=== PATIENT | male | born 1960 | race Two or more races ===

== ENCOUNTER → 2024-05-20 | Outpatient (CLI) | payer MEDICARE, MEDICAID, SELFPAY ==
--- NOTE | 2024-05-20 08:00 | XR_ITS ---
Examination: CT right lower extremity, without contrast. 2-D sagittal reconstructions. 2-D coronal reconstructions. 3-D reconstructions. Date and time of exam:May 20, 2024 0845 hours INDICATIONS: Right knee pain and osteoarthritis 3 years CTDI: vol (mGy):10.2 DLP: (mGycm):892 Technique: Multiple 1.25 mm axial sections of the right lower extremity without intravenous contrast have been obtained. 2-D sagittal and coronal reconstructions have been obtained. 3-D reconstructions have been obtained. Low dose protocols were performed. One or more of the following dose reduction techniques were used; automated exposure control, adjustment of the mA and/or KV according to patient size, use of iterative reconstruction technique. Findings: Moderate osteopenia Moderate osteoarthritis right hip joint, no hip fracture or hip dislocation No avascular necrosis Severe narrowing medial joint space right knee Advanced osteoarthritis lateral patellofemoral joints with minimal chronic lateral subluxation patella No fracture IMPRESSION: Advanced right knee tricompartment osteoarthritis with severe narrowing medial joint space
== END | disposition home or self-care (01) ==
PROVIDERS: Referring Provider Orthopaedic Surgery Adult Reconstructive Orthopaedic Surgery; Visit Provider Orthopaedic Surgery Adult Reconstructive Orthopaedic Surgery
DX: M17.11 Unilateral primary osteoarthritis, right knee (principal); M25.861 Other specified joint disorders, right knee
CPT/HCPCS: 73700

== ENCOUNTER 2024-06-03 07:46 | Outpatient (AMB) | payer MEDICARE, MEDICAID, SELFPAY ==
[2024-06-03 08:02] VITALS: BP 140/85; PULSE 76; RESP 18; TEMP 36.5; O2SAT 94; BMI 30.8
--- NOTE | 2024-06-03 08:02 | ORTHONT_ITS ---
Vital signs 06/03/24 08:02 Height 1.75 m Height Method Stated Weight 94.376 kg Weight Measurement Method Standing Scale BMI 30.8 BP 140/85 H Blood Pressure Source Automatic Cuff Blood Pressure Location Right Upper Arm Position Sitting Respiration 18 Pulse 76 Pulse Source Monitor Temp 97.7 F Temp Source Temporal Artery Scan Pulse Oximetry (%) 94 L Oxygen Delivery Method Room Air Med/Allergies Allergies & Medications Allergies No Known Allergies Allergy (Verified 06/03/24 08:02) Medication Reconciliation docusate sodium 100 mg capsule (Colace) 100 mg PO BID #40 caps 04/15/20 [Rx Con firmed 06/03/24] hydrocodone 5 mg-acetaminophen 325 mg tablet ([place]) 1 tab PO Q6H PRN pain #20 tabs 04/15/20 [Rx Confirmed 06/03/24] ibuprofen 600 mg tablet 600 mg PO Q8H PRN pain (scale score 4-6) #15 tabs 04/15/20 [Rx Confirmed 06/03/24] atorvastatin 20 mg tablet 20 mg PO QDAY 12/29/20 [History Confirmed 06/03/24] ergocalciferol (vitamin D2) 1,250 mcg (50,000 unit) capsule 1 mcg PO QDAY 12/29/20 [History Confirmed 06/03/24] ibuprofen 800 mg tablet 800 mg PO TID PRN pain #30 tabs 06/20/21 [Rx Confirmed 06/03/24] Subjective Visit Visit for: follow up visit Immunization / Flu Flu Vaccine in the Last 12 Months: No Flu Vaccine Exclusion Criteria: No Exclusion Criteria History of Present Illness Chief complaint: PRE-OPT Jone is a pleasant 63-year-old male with right knee pain has been ongoing for 3 years. He has tried naproxen, physical therapy, and 3 injections. He is also tried 2 additional injections in [place]. The pain is affecting his quality life and he notices that his knee is curving inward. He just came back from [place] reports the pain is still terrible Personal History Occupation: RETIRED Red flag PMH: other (specify) (PATIENT HAD POLIO ) and none Pain Pain level (0-10): 6 Pain duration: CONSTANT Pain location: inside (medial), outside (lateral) and anterior Pain quality: sharp, dull and aching Pain timing: increases with activity and stairs Associated signs & symptoms: stiffness Ambulatory data Ambulatory device: none Walking distance (minutes): 5 Treatments Improvement with previous injections: No Improvement with PT: No Improvement with NSAIDS: n/a Review of Systems Review of Systems: All systems negative unless otherwise noted in HPI. Exam Exam Patient is in no acute distress and is cooperative with the examination today. Breathing is nonlabored. Patient has a normal mood and affect. Bilateral extremities were evaluated and demonstrates sensation intact to light touch. Palpable pedal pulses are present. No significant edema is present. Bilateral hips were examined. The patient has no pain with log roll of the hips. Internal rotation to 30 degrees and external rotation to 30 degrees is painless. Negative FADIR. Left knee was examined today. The left knee is in reasonable alignment. Range of motion from 0-120 degrees. Knee is stable to varus and valgus as well as AP translation with <5mm. Patient has a negative McMurrays. There is no pain with patellofemoral compression and no crepitus noted. The knee is nontender to palpation. The right knee was also examined. The right knee is in varus alignment. Range of motion from 0-115 degrees. Knee is stable to varus and valgus as well as AP translation with <5mm. Patient has a negative McMurrays. There is no pain with patellofemoral compression and no crepitus noted. The knee is tender to palpation medially. Right knee x-rays demonstrate complete obliteration of the medial joint space. There is varus arthritis present and varus deformity. Assessment and Plan Problem List (1) Arthritis of knee, right: Status: Acute Plan: Patient is a 63-year-old male with right knee pain and likely right knee arthritis. He has no recent x-rays. We would like for him to get new x-rays. He has already failed conservative treatment and she tried injections anti- inflammatories, and physical therapy.She has failed conservative treatment and thus we discussed total knee replacement is a reasonable option. The right knee pain is significantly worse than the left and we will thus start on this side. We spent over 15 minutes answering his questions about surgery Plan The nature and purpose of the total knee replacement, alternative method(s) of treatment, the material risks involved, and the possibility of complications were fully explained to the patient. The patient does NOT have any of the following contraindications to TKA: - Active infection of the knee joint, OR - Active systemic bacteremia, OR - Active skin infection or open wound at surgical site, OR - Neuropathic arthritis, OR - Severe, rapidly progressive neurological disease, OR - Severe medical condition that makes risks of surgery outweigh the potential benefit The patient was told the most common risks and complications associated with a total knee replacement include, but are not limited to: blood clots in the leg, fatal pulmonary embolism, dislocation of the prosthesis, intraoperative and postoperative fractures of the femur or tibia, infection, failure of the prosthesis or grafting materials, complications from anesthesia, reactions to blood transfusions, postoperative leg length inequality, instability of the knee replacement, nerve damage or injury, vascular injury, delayed wound healing, infection, other injury or even . In addition, there are risks associated with anesthesia given during this operation. Also, the patient was told that after undergoing a total knee replacement there may still be persistent pain or disability. The patient was informed that the success of this operation in part depends upon the mechanical devices which are going to be implanted and that these devices can fail or malfunction, and may need to be repaired or replaced and there are no guarantees as to the longevity of this device or its parts and that it or its parts could fail prematurely. The patient was also notified that during the course of surgery, there may be a need to use bone graft from donors, and that any bone graft used will be carefully screened for communicable diseases, including AIDS, hepatitis, Micky-Creutzfeldt, or other diseases, but despite the screening procedures, there is a small chance that they could contract one of these diseases. Finally, the patient was asked to follow completely and fully with all advice and recommended treatments, and that recovery and ultimate outcome are affected by their compliance with recommended treatment. We discussed the risks, benefits and treatment alternatives, and the patient is interested in proceeding with surgery. We will try to set this up as expeditiously as possible. Advanced Care Planning Discussion Advance care planning discussed with:: patient and spouse Office Procedures GNS Level of Care Nursing/Assessment Patient Status: Established Patient Nursing Assessment/Reassesment: Medication Reconciliation, Update PMH in EMR and Vital Signs Coordination of Care: Complex Care and Chronic Disease 1-5, Education Complex Pt/Fam, Consent,records obtained, informed consent, Results/Orders obtained and Staff clarify orders Special Needs: Language special needs Established Patient Charge Established Patient Point Assignment: 95 Established Patient Point Charge: EP Level 3 (80-115) Past Medical History Past Medical History Have you ever been diagnosed with any of the following: Neurological Problems Seizures: No Cardiology Problems Hypercholesterolemia: Yes Congestive Heart Failure: No Respiratory Problems Chronic Obstructive Pulmonary Disease (COPD): No Tuberculosis: No Sleep Apnea: No Smoking: No Smoking Exposure: No Stomache/Intestinal Problems Hepatitis: No Genital/Urinary Problems Renal Disease: No Endocrine Problems Diabetes Mellitus Type 1: No Diabetes Mellitus Type 2: No Other Problems Hospitalization: No Shingles: No Falls: No Blood Transfusions: No Blood Transfusion Reaction: No Anesthesia Reactions: No MRSA: No Chicken Pox: No Measles: No Mumps: No Cancer: No
== END 2024-06-03 08:24 | disposition home or self-care (01) ==
PROVIDERS: PCP Family Medicine; Referring Provider Family Medicine; Supervising Provider Orthopaedic Surgery Adult Reconstructive Orthopaedic Surgery; Visit Provider Orthopaedic Surgery Adult Reconstructive Orthopaedic Surgery
DX: M17.11 Unilateral primary osteoarthritis, right knee (principal); M25.561 Pain in right knee; E78.00 Pure hypercholesterolemia, unspecified
CPT/HCPCS: 99213; G0463

== ENCOUNTER 2024-06-11 06:30 | Day surgery (SDC) | payer MEDICARE, SELFPAY ==
--- NOTE | 2024-06-09 06:00 | EKG_ITS ---
[facility] Test Date: 2024-06-09 Pat Name: PATY CARDOZO Department: Room: - Gender: Male Development Advisor: JOSE : 1960 Requested By: Sherwin Shafer Order Number: [id number] Reading MD: Sherwin Shafer Measurements Intervals [place] Rate: 54 P: 3 IA: 155 QRS: -62 QRSD: 101 T: 0 QT: 416 QTc: 397 Interpretive Statements SINUS BRADYCARDIA MARKED LEFT AXIS DEVIATION NONSPECIFIC T-WAVE ABNORMALITY No previous ECG available for comparison /store/S0/[id number]/[id number].pdf
[2024-06-09 06:47] VITALS: BMI 33.0
[2024-06-09 07:57] LABS: Basophils # (Auto) 0.1 Thou/mm3 (0.0-0.2); Basophils % (Auto) 1 % (0-2.5); Eosinophils # (Auto) 0.6 Thou/mm3 (0.0-0.5); Eosinophils % (Auto) 7 % (0-10); Hematocrit 48.7 % (41.0-53.0); Hemoglobin 16.2 g/dL (13.5-16.0); Immature Granulocytes % (Auto) 1 % (0-0); Immature Granulocytes Auto 0.06 Thou/mm3 (0.00-0.00); Lymphocytes # (Auto) 3.6 Thou/mm3 (1.0-4.8); Lymphocytes % (Auto) 39 % (10-50); Mean Corpuscular HGB Conc 33.3 g/dl (31.0-37.0); Mean Corpuscular Hemoglobin 30.2 pg (25.0-35.0); Mean Corpuscular Volume 91 fL (80-100); Monocytes # (Auto) 0.8 Thou/mm3 (0.0-0.8); Monocytes % (Auto) 9 % (0-12); Neutrophils # (Auto) 4.1 Thou/mm3 (1.8-7.7); Neutrophils % (Auto) 44 % (37-80); Nucleated Red Blood Cell % 0 /100 WBC (0); Platelet Count 228 Thou/mm3 (140-440); RDW Standard Deviation 43.4 fL (35.1-43.9); Red Blood Count 5.37 Miln/mm3 (4.50-5.90); White Blood Count 9.3 Thou/mm3 (3.8-10.6)
[2024-06-09 08:07] LABS: Partial Thromboplastin Time 26.5 Seconds (22.0-36.0); Prothrombin Time 10.9 Seconds (9.0-12.2)
[2024-06-09 08:10] LABS: Alanine Aminotransferase 57 U/L (10-49); Albumin, Serum 4.6 gm/dL (3.4-4.8); Albumin/Globulin Ratio 1.6 (1.2-2.2); Alkaline Phosphatase 101 U/L (46-116); Anion Gap 5 (7-16); Aspartate Amino Transferase 25 U/L (0-34); BUN/Creatinine Ratio 10 Ratio (12-20); Bilirubin,Total 0.5 mg/dL (0.3-1.2); Blood Urea Nitrogen 11 mg/dL (9-23); Calcium 9.4 mg/dL (8.3-10.6); Calcium (Corrected) 9.4 mg/dL (8.5-10.1); Carbon Dioxide 29.7 mMol/L (20.0-31.0); Chloride 102 mMol/L (98-107); Creatinine (Component) 1.1 mg/dL (0.6-1.3); Estimated Creatinine Clearance 73.8 mL/min (>60); Globulin 2.9 gm/dL (2.3-3.5); Glucose 131 mg/dL (74-106); Osmolality,Calculated 275 (275-295); Potassium 4.3 mMol/L (3.4-5.1); Sodium 137 mMol/L (136-145); Total Protein 7.5 gm/dL (5.7-8.2); eGFR > 60 See Note
--- NOTE | 2024-06-10 14:26 | SUR.PREOP ---
Cardiac clearance received, waiting on last office notes and echo, [facility] stated will fax it today afternoon, waiting, cardiac history reviewed with Dr Shafer.
[2024-06-11] VITALS (13 sets, daily range): BP systolic 114–142; BP diastolic 62–99; PULSE 62–87; RESP 12–20; TEMP 36.5–37.1; O2SAT 95–99; BMI 32.3
--- NOTE | 2024-06-11 07:22 | CHAP ---
Wileymanuel did not speak Kyrgyz so the nurse asked if he wanted prayer and that it would be in K[place]z. The patient assented and I prayed for him.
[2024-06-11] MEDS: MELOXICAM 7.5 MG TABLET PO (08:02)
[2024-06-11] MEDS: PREGABALIN 75 MG CAPSULE PO (08:02)
[2024-06-11] MEDS: ACETAMINOPHEN 325 MG TABLET 650 MG PO (08:02)
[2024-06-11] MEDS: RINGERS LACTATED 1000 ML 1,000 ML 20 ML IV (08:04)
--- NOTE | 2024-06-11 12:23 | ESOP_ITS ---
Date of Procedure 06/11/24 Pre Op Diagnosis right knee osteoarthritis Post Op Diagnosis right knee osteoarthritis Procedure right total knee replacement Findings full thickness and osteophytes Procedure Description Indication: The patient is a 63 year old who has a long history of right knee pain. X-rays show degenerative arthritis involving the knee. Over the past several years the patient has had increasing pain, progressive limitation in function. He has failed conservative measures including activity modification, physical therapy, injections, anti-inflammatories, and assistive devices. After a lengthy discussion of the risks and benefits, the patient presents now for total knee replacement. The nature and purpose of the total knee replacement, alternative method(s) of treatment, the material risks involved, and the possibility of complications were fully explained to the patient. The patient was told the most common risks and complications associated with a total knee replacement include, but are not limited to blood clots in the leg, fatal pulmonary embolism, dislocation of the prosthesis, intraoperative and postoperative fractures of the femur or tibia, infection, failure of the prosthesis or grafting materials, complications from anesthesia, reactions to blood transfusions, postoperative leg length inequality, instability of the knee replacement, nerve damage or injury, vascular injury, delayed wound healing, infections, other injury or even . In addition, there are risks associated with anesthesia given during this operation, temporary or permanent numbness on the skin lateral to the incision can be a complication unique to total knee surgery, and kneeling can be painful after knee replacement surgery. Also, the patient was told that after undergoing a total knee replacement there may still be pain or disability. We discussed with the patient that we will be using a robot-assisted technology. We discussed that there is a possibility of converting to manual instrumentation. The patient was informed that the success of this operation in part depends upon the mechanical devices which are going to be implanted and that these devices can fail or malfunction, and may need to be repaired or replaced and there are no guarantees as to the longevity of this device or its part and that it or its parts could fail prematurely. Finally, the patient was asked to follow completely and fully with all advice and recommended treatments, and that recovery and ultimate outcome are affected by their compliance with recommended treatment. Surgical technique: Patient was marked and consented in the pre-operative area. The patient was brought to the operating room and placed on the operating table in a supine position. Prior to positioning, a timeout procedure was performed between the surgeon, the anesthesiologist, and the nursing staff where the patient and the operative side were identified and confirmed. After adequate general anesthetic was obtained, the right lower extremity was prepped and draped in the usual sterile fashion. A weight based dose of Cefazolin were administered within 1 hour prior to incision. The robot was preregistered and calirated before the incision. The extremity was exsanguinated with an esmarch badge and tourniquet inflated to 250mmHg. A midline incision was made. A median parapatellar arthrotomy was made. The patella was subluxed laterally. A medial release was performed to expose the medial tibia. His femoral and tibial pins were placed through an intra incisional manner for both cases. Every effort was made to ensure that the distalmost aspect of the pin was hung in the second cortex. The arrays were then tightened several times to ensure that it was fixed for the remainder of the case. Both femoral and tibial checkpoints were then placed. We then went through the registration process of the bone. We then assessed the knee deformity and attempted to correct it. We also used the robot to aid in judging laxity in both extension and flexion. Final based on laxity and alignment we changed the preoperative assessment to obtain proper proper implant positioning and to correct deformity. Attention was then placed to the tibia. We made a tibial cut using the robot ensuring that both the MCL and the patella tendon were protected with retractors. We then went to the femur and made the posterior cut followed by the anterior cut and the anterior chamfer. The bone was then removed and we made a distal femur cut and a posterior chamfer cut. We verified all cuts. A trial reduction was performed with a size 6 femoral component and a size 6 keeled tibial component. The patella tracked centrally, and no lateral retinacular release was necessary. The trial implants were removed. The arrays, pins, and checkpoints were all removed. We performed a verification that all pins were removed. The cut bone surfaces were lavaged. A size 6 right femoral component, a size 6 keeled tibial component were impacted into position. The knee was felt to be well balanced in the sagittal and coronal plane. The final 6x10 mm cruciate- substituting articular insert was impacted into the tibial tray. The knee was brought out to full extension, flexed up to 120 degrees. It was stable to varus and valgus stress and appropriately balanced in flexion and extension. The wounds were copiously irrigated following deflation of tourniquet. The medial retinaculum was reapproximated with #1 vicryl and quill. The subcutaneous tissues were closed with 0 and 2-0 interrupted Vicryl. The skin was closed with 3-0 Monofilament V loc suture. A sterile dressing was applied. The patient was transferred to a bed and brought to recovery in stable condition. The patient tolerated the procedure well. There were no intraoperative complications. Sponge and needle counts were correct times 2. As the attending surgeon, I attest I was present and performed the entire operation. Grafts/Implants Size 6 CR Femur Size 6 Tibia 10mm poly CS Anesthesia GETA Implants fiona Pathology / specimen None Pathology comment: none Estimated Blood Loss 150 Condition Stable Disposition same day Surgeon Umesh Gauthier MD Surgical Staff Operation Date: 06/11/24 10:15 Case Staff Anesthesiologist: Tyron Jose RN First Assistant: Lizzie August
--- NOTE | 2024-06-11 12:26 | XR_ITS ---
Examination: Right knee 2 views Technique one AP lateral right knee 2 views Exam date and time: June 11, 2024 1305 hours INDICATIONS: Postop knee replacement today. FINDINGS: Total right knee arthroplasty. Satisfactory alignment. Moderate osteopenia. No fracture IMPRESSION: Total right knee arthroplasty with satisfactory alignment
--- NOTE | 2024-06-11 12:48 | SUR.PHASEI ---
1248: Pt. AAOx4, vitals stable, breathing unlabored, no complaint of pain or nausea, dressing to right knee CDI, no active bleed noted, palpable dorsalis pedis pulses bilaterally strong and regular, cap refill to bilateral feet less than 3 seconds, report received from MD Jose and Minh KIRKPATRICK.
--- NOTE | 2024-06-11 13:46 | SUR.OPER ---
IMPLANTS: RENAY ProNerveLON TRITANIUM TIBIAL COMPONENT REF: [id number] LOT: [id number] BLAYNE:#6 EXP. 01/06/29 X 1 IMPLANT RENAY TRIATHLON X3 TIBIAL BEARING INSERT-CS REF: [id number] LOT: [id number] EXP. 03/06/29 X 1 IMPLANT
--- NOTE | 2024-06-11 15:40 | SUR.PHASEII ---
1540: Pt. AAOx4, vitals stable, breathing unlabored, no complaint of pain or nausea, dressing to right knee CDI, no active bleed noted, bilateral dorsalis pedis pulses strong and regular, cap refill to bilateral feet less than 3 seconds, pt. ambulated with PT, pt. tolerated well, pt. able to urinate, pt. tolerated eating food and sips of water well, gave discharge instructions to the pt. and his ride using manager front [place], both verbalized understanding and had no further questions. Pt. left with all personal belongings.
== END 2024-06-11 15:40 | disposition home or self-care (01) ==
PROVIDERS: Anesthesiology; PCP Family Medicine; Referring Provider Orthopaedic Surgery Adult Reconstructive Orthopaedic Surgery; Visit Provider Orthopaedic Surgery Adult Reconstructive Orthopaedic Surgery
PROC: (CPT 27447; principal; 2024-06-11 10:00)
DX: M17.11 Unilateral primary osteoarthritis, right knee (principal); Z01.810 Encounter for preprocedural cardiovascular examination
CPT/HCPCS: 27447; 20985; 36415; 73560; 80053; 85025; 85610; 85730; 93005; 97162; A4217; C1713; C1776; J0171; J0690; J1100; J1885; J2250; J2704; J2795; J3010; J3490; J7030; J7120; A4648; A4649; A9270

== ENCOUNTER 2024-06-24 10:23 | Outpatient (AMB) | payer MEDICARE, SELFPAY ==
--- NOTE | 2024-06-24 11:07 | ORTHONT_ITS ---
Vital signs 06/24/24 11:08 Height 1.7 m Height Method Stated Weight 93.043 kg Weight Measurement Method Standing Scale BMI 32.1 BP 121/84 Blood Pressure Source Automatic Cuff Blood Pressure Location Right Upper Arm Position Sitting Respiration 18 Pulse 73 Pulse Source Monitor Temp 97.7 F Temp Source Temporal Artery Scan Pulse Oximetry (%) 94 L Oxygen Delivery Method Room Air Med/Allergies Allergies & Medications Allergies No Known Allergies Allergy (Verified 06/24/24 11:09) Medication Reconciliation atorvastatin 20 mg tablet 20 mg PO QDAY 12/29/20 [History Confirmed 06/24/24] doxycycline hyclate 100 mg tablet 100 mg PO BID #14 tabs 06/11/24 [Rx Confirmed 06/24/24] gabapentin 300 mg capsule 300 mg PO .qhs #30 caps 06/11/24 [Rx Confirmed 06/24/24] sennosides 8.6 mg-docusate sodium 50 mg tablet (Senna-S) 1 tab-cap PO QDAY #30 tabs 06/11/24 [Rx Confirmed 06/24/24] meloxicam 7.5 mg tablet 7.5 mg PO QDAY #30 tabs 06/24/24 [Rx] oxycodone 5 mg tablet 5 mg PO Q6H PRN pain #28 tabs 06/24/24 [Rx] Exam Exam Patient is in no acute distress and is cooperative with the examination today. Breathing is nonlabored. Patient has a normal mood and affect. Bilateral extremities were evaluated and demonstrates sensation intact to light touch. Palpable pedal pulses are present. No significant edema is present. Bilateral hips were examined. The patient has no pain with log roll of the hips. Internal rotation to 30 degrees and external rotation to 30 degrees is painless. Negative FADIR. Left knee was examined today. The left knee is in reasonable alignment. Range of motion from 0-120 degrees. Knee is stable to varus and valgus as well as AP translation with <5mm. Patient has a negative McMurrays. There is no pain with patellofemoral compression and no crepitus noted. The knee is nontender to palpation. The right knee was also examined. Right knee incision is clean dry and intact. Range of motion 0 to 100 degrees Assessment and Plan Problem List (1) Arthritis of knee, right: Status: Acute Plan: Patient is a 63-year-old male status post right total knee replacement. Will see him in approximately 4 weeks with new x-rays. He should work with outpatient physical therapy. Advanced Care Planning Discussion Advance care planning discussed with:: patient Office Procedures GNS Level of Care Nursing/Assessment Patient Status: Established Patient Nursing Assessment/Reassesment: Medication Reconciliation, Update PMH in EMR and Vital Signs Coordination of Care: Complex Care and Chronic Disease 1-5, Education Complex Pt/Fam, Consent,records obtained, informed consent, Results/Orders obtained and Staff clarify orders Special Needs: Language special needs Established Patient Charge Established Patient Point Assignment: 95 Established Patient Point Charge: EP Level 3 (80-115) MA Intake Visit Data Collection New Patient or Established: Established Patient (seen at [facility] within 3 years) Reason for Visit:: 2 WEEKS POST OP Seen by Clinical Staff ONLY (RN/MA): No Verbal consent obtained for Telemed visit?: No Licensed Esthetician Required: Yes PCP or OBGYN visit in last 3 months: Yes Hx Now: No Do You Feel Safe at Home: Yes Authorities Contacted: N/A Questionairres Past Medical History Past Medical History Have you ever been diagnosed with any of the following: Neurological Problems Seizures: No Cardiology Problems Hypercholesterolemia: Yes Congestive Heart Failure: No Respiratory Problems Chronic Obstructive Pulmonary Disease (COPD): No Tuberculosis: No Sleep Apnea: No Smoking: No Smoking Exposure: No Stomache/Intestinal Problems Hepatitis: No Obesity: Yes Genital/Urinary Problems Renal Disease: No Musculoskeletal Problems Arthritis: Yes Poliovirus: Yes (left leg thiner) Endocrine Problems Diabetes Mellitus Type 1: No Diabetes Mellitus Type 2: No Blood Problems Anemia: No Other Problems Hospitalization: Yes Shingles: No Falls: No Blood Transfusions: No Blood Transfusion Reaction: No Anesthesia Reactions: No MRSA: No Chicken Pox: Yes Measles: Yes Mumps: No Cancer: No Subjective Visit Visit for: follow up visit, post op #1 and knee Immunization / Flu Flu Vaccine in the Last 12 Months: Yes Flu Vaccine Exclusion Criteria: No Exclusion Criteria History of Present Illness Chief complaint: 2 WEEK POST OP Patient is 2 weeks status post right total knee replacement is doing well. He is using a walker. He is working with home therapy Pain Pain level (0-10): 5 Pain duration: COMES AND GOES Pain location: anterior and posterior Pain quality: sharp, dull and aching Pain timing: increases with activity Associated signs & symptoms: numbness and stiffness Ambulatory data Ambulatory device: walker Treatments Improvement with previous injections: No Improvement with PT: No Improvement with NSAIDS: n/a Review of Systems Review of Systems: All systems negative unless otherwise noted in HPI.
[2024-06-24 11:08] VITALS: BP 121/84; PULSE 73; RESP 18; TEMP 36.5; O2SAT 94; BMI 32.1
== END 2024-06-24 11:52 | disposition home or self-care (01) ==
LOC: HODSRG 10:23
PROVIDERS: Supervising Provider Orthopaedic Surgery Adult Reconstructive Orthopaedic Surgery; Visit Provider Orthopaedic Surgery Adult Reconstructive Orthopaedic Surgery
DX: M17.11 Unilateral primary osteoarthritis, right knee (principal); Z96.651 Presence of right artificial knee joint; E78.00 Pure hypercholesterolemia, unspecified
CPT/HCPCS: 99213; G0463

== ENCOUNTER 2024-07-24 11:30 | Outpatient (RCR) | payer MEDICARE, MEDICAID, SELFPAY ==
--- NOTE | 2024-07-17 13:39 | PTNOTE_ITS ---
PT OP Initial Eval Patient Information Outpatient Physical Therapy Treatment Date: 07/17/24 Visit Reasons: RT TKA Medical Diagnosis: R TKA Treatment Dx #1: R knee pain Treatment Dx #2: Dec R knee ROM Start of Care: 07/17/24 Date of Onset: 06/11/24 Smoking Status Smoking Status: Never smoker Initial Assessment Subjective: Pt is 64 yr old hungarian speaking male s/p R TKA arrives to therapy with FWW. He reports low pain level and that he is bending the knee more and more with HEP. PMH: high cholesterol, polio at 7 months Pt goal: to walk without walker and bend the knee more Objective: R knee AROM: ? Flexion: 115 deg ? Extension: -5 deg ? SLR: ? 85 deg ? Strength: ? Quads and hamstrings 4-/5 ? Gait: almost symmetrical, using walker, decreased WB on R Assessment: Pt presentation consistent with post op R TKA with decreased ROM, strength ? and WB tolerance. Pt lacks a few degrees of knee extension and flexion is limited by ? myofascial limitations and pain.? Pt requires skilled therapy to improve ROM ? and strength and has good rehab potential.? Eval followed by HEP with printout. [employer] Maintenance Clerk Goals 1. Independent with HEP 2. Improved knee ROM to full extension to 120 deg flexion 3. Improved quad and hamstring strength to 4+/5 4. Improved ambulatory tolerance to community distances with symmetrical ?? gait pattern without walker.??? Treatment Plan ? 1. Manual therapy ? 2. Therex ? 3. Modalities as indicated, moist heat, ice, estim Frequency and Duration: 2x a week for 12 visits Certification Dates: 07/18/24 to 10/14/24 Procedure Charges OP PT Eval Mod Complex 30 minutes: Yes
--- NOTE | 2024-07-18 14:22 | PT.ODAYNRPT ---
PT Outpatient Daily Note OP Daily Note Outpatient Physical Therapy Treatment Date: 07/18/24 Visit Reasons: RT TKA Subjective: Same as evaluation Objective: See F/S for therex Assessment: Good improvement with AAROM into knee flexion to 120 deg today with strap Plan: Continue per POC Length of Time (minutes) of Treatment: 30 Minutes Procedure Charges Therapeutic Exercise 30 minutes: Yes
--- NOTE | 2024-07-21 14:55 | PT.ODAYNRPT ---
PT Outpatient Daily Note OP Daily Note Outpatient Physical Therapy Treatment Date: 07/21/24 Visit Reasons: RT TKA Subjective: No significant pain in R knee Objective: See F/S for therex Assessment: Good improvement with AAROM into knee flexion to 120 deg with strap Plan: Continue per POC, wean walker Length of Time (minutes) of Treatment: 30 Minutes Procedure Charges Therapeutic Exercise 30 minutes: Yes
--- NOTE | 2024-07-23 15:01 | PT.ODAYNRPT ---
PT Outpatient Daily Note OP Daily Note Outpatient Physical Therapy Treatment Date: 07/23/24 Visit Reasons: RT TKA Subjective: No significant pain in R knee and not using the walker Objective: See F/S for therex Strength: Quads: 4/5 HS: 4/5 Extension: -3 deg Assessment: Good improvement with AAROM into knee flexion to 120 deg with strap Plan: Continue per POC, improve extension to full Length of Time (minutes) of Treatment: 30 Minutes Procedure Charges Therapeutic Exercise 30 minutes: Yes
--- NOTE | 2024-07-24 14:48 | PT.ODS1RPT ---
PT OP Progress/Discharge Note Date of Service: 07/24/24 Progress Note/DC Note Progress Note/Discharge Note: DC Note Patient Information Visit Reasons: RT TKA Treatment Dx #1: R knee pain Treatment Dx #2: Dec R knee ROM Service Continue Service or Discharge: Discharge Discharge Date: 07/24/24 Status Subjective: No significant pain in R knee and not using the walker. Insurance is changing in July and he is ready to D/C from therapy with HEP. Objective: See F/S for therex Strength: Quads: 4/5 HS: 4/5 Extension: -3 deg Flexion: 120 deg Assessment: Pt has attended the eval and 4 Rx sessions with good improvement to meet goal of knee flexion to 120 deg with strap. He has improved gait pattern to symmetrical without the walker and can ambulate community distances. He is lacking about 5 deg of extension which should improve with HEP. Pt is independent with HEP. Plan: D/C with HEP due to insurance change and has met most therapy goals. Goals Achieved: 1. Independent with HEP 2. Improved knee ROM to 120 deg flexion 3. Improved ambulatory tolerance to community distances with symmetrical ?? gait pattern without walker.??? Procedure Charges Therapeutic Exercise 30 minutes: Yes
== END 2024-07-25 23:59 | disposition home or self-care (01) ==
LOC: CPTX 11:30
PROVIDERS: PCP Family Medicine; Referring Provider Orthopaedic Surgery Adult Reconstructive Orthopaedic Surgery; Visit Provider Orthopaedic Surgery Adult Reconstructive Orthopaedic Surgery
DX: M25.561 Pain in right knee (principal); Z96.651 Presence of right artificial knee joint
CPT/HCPCS: 97110; 97162

== ENCOUNTER → 2024-07-25 | Outpatient (CLI) | payer MEDICARE, MEDICAID, SELFPAY ==
--- NOTE | 2024-07-25 09:55 | XR_ITS ---
Examination: Right knee 4 views TECHNIQUE: Standing AP oblique lateral axial right knee 4 views Exam date and time: July 25, 2024 1026 hours INDICATIONS: Status post knee replacement June 11, 2024 FINDINGS: Mild osteopenia Total right knee arthroplasty. Satisfactory alignment Moderate knee effusion No patellar dislocation No fracture IMPRESSION: Total right knee arthroplasty with satisfactory alignment
== END | disposition home or self-care (01) ==
PROVIDERS: PCP Family Medicine; Referring Provider Orthopaedic Surgery Adult Reconstructive Orthopaedic Surgery; Visit Provider Orthopaedic Surgery Adult Reconstructive Orthopaedic Surgery
DX: M17.11 Unilateral primary osteoarthritis, right knee (principal); Z96.651 Presence of right artificial knee joint
CPT/HCPCS: 73564

== ENCOUNTER 2024-07-29 09:23 | Outpatient (AMB) | payer OTHER, SELFPAY ==
[2024-07-29 09:59] VITALS: BP 130/90; PULSE 86; RESP 18; TEMP 36.3; O2SAT 95; BMI 32.5
--- NOTE | 2024-07-29 09:59 | PD.ORTHCLVIS ---
Vital signs 07/29/24 09:59 Height 1.7 m Height Method Stated Weight 94.007 kg Weight Measurement Method Standing Scale BMI 32.5 BP 130/90 H Blood Pressure Source Automatic Cuff Blood Pressure Location Right Upper Arm Position Sitting Respiration 18 Pulse 86 Pulse Source Monitor Temp 97.3 F Temp Source Temporal Artery Scan Pulse Oximetry (%) 95 Oxygen Delivery Method Room Air Med/Allergies Allergies & Medications Allergies No Known Allergies Allergy (Verified 07/29/24 10:00) Medication Reconciliation atorvastatin 20 mg tablet 20 mg PO QDAY 12/29/20 [History Confirmed 07/29/24] doxycycline hyclate 100 mg tablet 100 mg PO BID #14 tabs 06/11/24 [Rx Confirmed 07/29/24] gabapentin 300 mg capsule 300 mg PO .qhs #30 caps 06/11/24 [Rx Confirmed 07/29/24] sennosides 8.6 mg-docusate sodium 50 mg tablet (Senna-S) 1 tab-cap PO QDAY #30 tabs 06/11/24 [Rx Confirmed 07/29/24] meloxicam 7.5 mg tablet 7.5 mg PO QDAY #30 tabs 06/24/24 [Rx Confirmed 07/29/24] oxycodone 5 mg tablet 5 mg PO Q6H PRN pain #28 tabs 06/24/24 [Rx Confirmed 07/29/24] Exam Exam Patient is in no acute distress and is cooperative with the examination today. Breathing is nonlabored. Patient has a normal mood and affect. Bilateral extremities were evaluated and demonstrates sensation intact to light touch. Palpable pedal pulses are present. No significant edema is present. Bilateral hips were examined. The patient has no pain with log roll of the hips. Internal rotation to 30 degrees and external rotation to 30 degrees is painless. Negative FADIR. Left knee was examined today. The left knee is in reasonable alignment. Range of motion from 0-120 degrees. Knee is stable to varus and valgus as well as AP translation with <5mm. Patient has a negative McMurrays. There is no pain with patellofemoral compression and no crepitus noted. The knee is nontender to palpation. The right knee was also examined. Right knee incision is clean dry and intact. Range of motion 0 to 110 degrees Xrays demonstrate a cementless total knee replacement in good alignment and position Assessment and Plan Problem List (1) Arthritis of knee, right: Status: Acute Plan: Patient is a 63-year-old male status post right total knee replacement. Will see him in approximately 8 weeks. He is doing well Advanced Care Planning Discussion Advance care planning discussed with:: patient Office Procedures GNS Level of Care Nursing/Assessment Patient Status: Established Patient Nursing Assessment/Reassesment: Medication Reconciliation, Update PMH in EMR and Vital Signs Coordination of Care: Complex Care and Chronic Disease 1-5, Education Complex Pt/Fam, Consent,records obtained, informed consent, Results/Orders obtained and Staff clarify orders Special Needs: Language special needs Established Patient Charge Established Patient Point Assignment: 95 Established Patient Point Charge: EP Level 3 (80-115) MA Intake Visit Data Collection New Patient or Established: Established Patient (seen at [facility] within 3 years) Reason for Visit:: POST OP RT TKA Seen by Clinical Staff ONLY (RN/MA): No Verbal consent obtained for Telemed visit?: No Genetic Engineer Required: Yes PCP or OBGYN visit in last 3 months: Yes Hx Now: No Do You Feel Safe at Home: Yes Authorities Contacted: N/A Questionairres Past Medical History Past Medical History Have you ever been diagnosed with any of the following: Neurological Problems Seizures: No Cardiology Problems Hypercholesterolemia: Yes Congestive Heart Failure: No Respiratory Problems Chronic Obstructive Pulmonary Disease (COPD): No Tuberculosis: No Sleep Apnea: No Smoking: No Smoking Exposure: No Stomache/Intestinal Problems Hepatitis: No Obesity: Yes Genital/Urinary Problems Renal Disease: No Musculoskeletal Problems Arthritis: Yes Poliovirus: Yes (left leg thiner) Endocrine Problems Diabetes Mellitus Type 1: No Diabetes Mellitus Type 2: No Blood Problems Anemia: No Other Problems Hospitalization: Yes Shingles: No Falls: No Blood Transfusions: No Blood Transfusion Reaction: No Anesthesia Reactions: No MRSA: No Chicken Pox: Yes Measles: Yes Mumps: No Cancer: No Subjective Visit Visit for: follow up visit and knee Immunization / Flu Flu Vaccine in the Last 12 Months: No Flu Vaccine Exclusion Criteria: No Exclusion Criteria History of Present Illness Chief complaint: POST OP RT TKA Patient is 6 weeks status post right total knee replacement is doing well. He is using no assistive device and is doing well. Pain Pain level (0-10): 0 Pain duration: COMES AND GOES Pain location: anterior and posterior Pain quality: sharp, dull and aching Pain timing: increases with activity Associated signs & symptoms: none Ambulatory data Ambulatory device: none Treatments Improvement with previous injections: No Improvement with PT: No Improvement with NSAIDS: no Review of Systems Review of Systems: All systems negative unless otherwise noted in HPI.
== END 2024-07-29 10:17 | disposition home or self-care (01) ==
PROVIDERS: PCP Family Medicine; Referring Provider Family Medicine; Supervising Provider Orthopaedic Surgery Adult Reconstructive Orthopaedic Surgery; Visit Provider Orthopaedic Surgery Adult Reconstructive Orthopaedic Surgery
DX: M17.11 Unilateral primary osteoarthritis, right knee (principal); Z96.651 Presence of right artificial knee joint; E78.00 Pure hypercholesterolemia, unspecified
CPT/HCPCS: 99213; G0463

== ENCOUNTER 2024-11-13 14:54 | Outpatient (AMB) | payer OTHER, SELFPAY ==
[2024-11-13 15:07] VITALS: BP 135/88; PULSE 60; RESP 18; TEMP 36.6; O2SAT 93; BMI 32.3
--- NOTE | 2024-11-13 15:07 | ORTHONT_ITS ---
Vital signs 11/13/24 15:07 Height 1.7 m Height Method Stated Weight 93.582 kg Weight Measurement Method Standing Scale BMI 32.3 BP 135/88 H Blood Pressure Source Automatic Cuff Blood Pressure Location Right Upper Arm Position Sitting Respiration 18 Pulse 60 Pulse Source Monitor Temp 97.8 F Temp Source Temporal Artery Scan Pulse Oximetry (%) 93 L Oxygen Delivery Method Room Air Med/Allergies Allergies & Medications Allergies No Known Allergies Allergy (Verified 11/13/24 15:08) Medication Reconciliation atorvastatin 20 mg tablet 20 mg PO QDAY 12/29/20 [History Confirmed 11/13/24] doxycycline hyclate 100 mg tablet 100 mg PO BID #14 tabs 06/11/24 [Rx Confirmed 11/13/24] gabapentin 300 mg capsule 300 mg PO .qhs #30 caps 06/11/24 [Rx Confirmed 11/13/24] sennosides 8.6 mg-docusate sodium 50 mg tablet (Senna-S) 1 tab-cap PO QDAY #30 tabs 06/11/24 [Rx Confirmed 11/13/24] meloxicam 7.5 mg tablet 7.5 mg PO QDAY #30 tabs 06/24/24 [Rx Confirmed 11/13/24] oxycodone 5 mg tablet 5 mg PO Q6H PRN pain #28 tabs 06/24/24 [Rx Confirmed 11/13/24] Exam Exam Patient is in no acute distress and is cooperative with the examination today. Breathing is nonlabored. Patient has a normal mood and affect. Bilateral extremities were evaluated and demonstrates sensation intact to light touch. Palpable pedal pulses are present. No significant edema is present. Bilateral hips were examined. The patient has no pain with log roll of the hips. Internal rotation to 30 degrees and external rotation to 30 degrees is painless. Negative FADIR. Left knee was examined today. The left knee is in reasonable alignment. Range of motion from 0-120 degrees. Knee is stable to varus and valgus as well as AP translation with <5mm. Patient has a negative McMurrays. There is no pain with patellofemoral compression and no crepitus noted. The knee is nontender to palpation. The right knee was also examined. Right knee incision is clean dry and intact. Range of motion 0 to 110 degrees Xrays demonstrate a cementless total knee replacement in good alignment and position Assessment and Plan Problem List (1) Arthritis of knee, right: Status: Acute Plan: Patient is a 63-year-old male status post right total knee replacement. Will see him in approximately 5 months. He is doing well He is very happy and we will see him back in 6 months with xrays Advanced Care Planning Discussion Advance care planning discussed with:: patient Office Procedures GNS Level of Care Nursing/Assessment Patient Status: Established Patient Nursing Assessment/Reassesment: Medication Reconciliation, Update PMH in EMR and Vital Signs Coordination of Care: Complex Care and Chronic Disease 1-5, Consent,records obtained, informed consent, Education Simp Pt/Fam, Results/Orders obtained and Staff clarify orders Special Needs: Language special needs (GABONESE ) Established Patient Charge Established Patient Point Assignment: 90 Established Patient Point Charge: EP Level 3 (80-115) MA Intake Visit Data Collection New Patient or Established: Established Patient (seen at [facility] within 3 years) Reason for Visit:: FU TKA Seen by Clinical Staff ONLY (RN/MA): No Service Member Required: Yes PCP or OBGYN visit in last 3 months: Yes Hx Now: No Do You Feel Safe at Home: Yes Authorities Contacted: N/A Questionairres Past Medical History Past Medical History Have you ever been diagnosed with any of the following: Neurological Problems Seizures: No Cardiology Problems Hypercholesterolemia: Yes Congestive Heart Failure: No Respiratory Problems Chronic Obstructive Pulmonary Disease (COPD): No Tuberculosis: No Sleep Apnea: No Smoking: No Smoking Exposure: No Stomache/Intestinal Problems Hepatitis: No Obesity: Yes Genital/Urinary Problems Renal Disease: No Musculoskeletal Problems Arthritis: Yes Poliovirus: Yes (left leg thiner) Endocrine Problems Diabetes Mellitus Type 1: No Diabetes Mellitus Type 2: No Blood Problems Anemia: No Other Problems Hospitalization: Yes Shingles: No Falls: No Blood Transfusions: No Blood Transfusion Reaction: No Anesthesia Reactions: No MRSA: No Chicken Pox: Yes Measles: Yes Mumps: No Cancer: No Subjective Visit Visit for: follow up visit, post op #3 (TKA ) and knee Immunization / Flu Flu Vaccine in the Last 12 Months: No Flu Vaccine Exclusion Criteria: Refused by Patient and No Exclusion Criteria History of Present Illness Chief complaint: POST OP RT TKA Patient is 5 months status post right total knee replacement is doing well. He is doing well and has minimal pain Pain Pain level (0-10): 0 Pain duration: COMES AND GOES Pain location: anterior and posterior Pain quality: sharp, dull and aching Pain timing: increases with activity Associated signs & symptoms: stiffness and none Ambulatory data Ambulatory device: none Treatments Number of previous injections: 0 Improvement with previous injections: No Number of Physical Therapy sessions: 7 Improvement with PT: Yes Improvement with NSAIDS: n/a Review of Systems Review of Systems: All systems negative unless otherwise noted in HPI.
== END 2024-11-13 15:14 | disposition home or self-care (01) ==
LOC: HODSRG 14:54
PROVIDERS: PCP Family Medicine; Referring Provider Family Medicine; Supervising Provider Orthopaedic Surgery Adult Reconstructive Orthopaedic Surgery; Visit Provider Orthopaedic Surgery Adult Reconstructive Orthopaedic Surgery
DX: M17.11 Unilateral primary osteoarthritis, right knee (principal); Z96.651 Presence of right artificial knee joint; E78.00 Pure hypercholesterolemia, unspecified
CPT/HCPCS: 99213; G0463